=== PATIENT | female | born 1970 | race Caucasian/White ===

== ENCOUNTER 2019-05-20 13:48 | Inpatient (IN) | payer MEDICAID ==
[~2019-05-20] VITALS: Ht 167.6 cm; Wt 113.6 kg
[2019-05-20] VITALS (9 sets, daily range): BP systolic 68–122; BP diastolic 35–80
[2019-05-20] MEDS ORDERED: normal saline 1000ML IV soln IVB ONE ×2 (14:00)
[2019-05-20] MEDS ORDERED: etomidate 2mg/ml inj. ONE (14:00)
[2019-05-20] MEDS ORDERED: calcium chloride 100 MG/1 ML inj IV ONE ×2 (14:00→15:25)
[2019-05-20] MEDS ORDERED: epiNEPHrine 0.1mg/ml 10ml syringe ONE (14:00)
[2019-05-20] MEDS ORDERED: dextrose 50%-water 50ml dispensing syringe IV ONE ×3 (14:00→15:50)
[2019-05-20] MEDS ORDERED: sodium bicarbonate (8.4%) 1 mEq/ml syringe ONE (14:00)
[2019-05-20] MEDS ORDERED: sod chloride 0.9% 10ml flush syringe IV ONE (14:00)
[2019-05-20 14:15] LABS: BASOPHILS % (AUTO) 0.2 % (0-1); EOSINOPHILS % (AUTO) 0.1 % (0-6); HEMATOCRIT 24.5 % (35.0-45.0); HEMOGLOBIN 7.5 g/dl (12.0-16.0); LYMPHOCYTES # (AUTO) 0.5 X10'3 (1.1-4.8); LYMPHOCYTES % (AUTO) 4.6 % (21-51); MEAN CORPUSCULAR HGB CONC 30.6 g/dL (33.0-36.5); MEAN CORPUSCULAR VOLUME 85.1 FL (78-98); MEAN PLATELET VOLUME 9.2 FL (7.4-10.4); MONOCYTES # (AUTO) 0.6 X10'3 (0-0.9); NEUTROPHILS # (AUTO) 10.6 X10'3 (1.8-7.7); NEUTROPHILS % (AUTO) 90.1 % (42-75); PLATELET COUNT 233 X10'3 (140-440); RED BLOOD COUNT 2.88 X10'6 (4.20-5.60); RED CELL DISTRIBUTION WIDTH 17.1 % (11.5-14.5); WHITE BLOOD COUNT 11.7 X10'3 (4.5-11.0)
[2019-05-20 14:32] LABS: ALANINE AMINOTRANSFERASE 30 U/L (12-78); ALBUMIN 2.3 G/DL (3.4-5.0); ALBUMIN/GLOBULIN RATIO 0.5 (1.1-1.5); ALKALINE PHOSPHATASE 217 IU/L (46-116); ANION GAP 22 (8-16); ASPARTATE AMINO TRANSFERASE 28 U/L (10-37); BILIRUBIN,TOTAL 0.2 MG/DL (0.1-1.0); BLOOD UREA NITROGEN 138 MG/DL (7-18); BUN/CREATININE RATIO 15.6 (6.6-38.0); CHLORIDE 107 MMOL/L (99-107); CREATININE 8.85 MG/DL (0.40-0.90); GLUCOSE 280 MG/DL (70-104); SODIUM 136 MMOL/L (135-145); eGFR 5 ML/MIN
[2019-05-20 14:34] LABS: POTASSIUM 8.3 MMOL/L (3.5-5.1); TOTAL CARBON DIOXIDE 7.1 MMOL/L (24-32)
[2019-05-20] MEDS ORDERED: albuterol 2.5 MG/3 ML nebule CONTNEB PRN (14:45)
[2019-05-20] MEDS ORDERED: insulin regular, human 10 units/0.1 ml syringe IV ONE (14:45)
[2019-05-20] MEDS ORDERED: calcium gluconate inj. 1 GM in normal saline 100ml IV soln 90 ML IV ONE (14:45)
[2019-05-20] MEDS ORDERED: sodium bicarbonate (0.9mEq/ml) 44.6 mEq/50ml syringe IV ONE (14:45)
[2019-05-20] MEDS ORDERED: sodium bicarbonate (8.4%) inj. 1 MEQ/ML ML IV ONE (14:55)
[2019-05-20] MEDS ORDERED: acetaminophen 325mg tablet PO PRN ×2 (15:00)
[2019-05-20] MEDS ORDERED: morphine 4 MG/ML inj SYRINge IV PRN (15:00)
--- NOTE | 2019-05-20 15:05 | NUR ---
MD Garcia gave pt 0.1mg Epi IV x2 about 2 min apart because the pt's HR was dropping to the 40's and BP was low. the Calcium gluconate is still being waited on from the pharmacy so the MD Garcia verbally ordered calcium chloride 1 gram and it was given along with 1 amp of D50. 2 amps total of sodium bicarb has been given per MD request.
[2019-05-20] MEDS ORDERED: LIDOcaine 1%/PF 5ML 10 MG/ML VIAL SQ ONE (15:10)
[2019-05-20] MEDS ORDERED: midazolam 2 mg/2 ml injection IV PRN (15:10)
[2019-05-20] MEDS ORDERED: fentaNYL/PF 50MCG/1 ML 2ML syringe IV PRN (15:10)
[2019-05-20] MEDS ORDERED: heparin 1,000 units/ml 10ml inj ICATH ONE (15:10)
--- NOTE | 2019-05-20 15:10 | NUR ---
Ohlfs at bedside because the pt's BP dropped. pt's been given all the meds ordered. see eMar. pt on Non-rebreather.
[2019-05-20] MEDS ORDERED: LIDOcaine 1% w/epiNEPHrine 1:200,000 30ml vial ONE (15:15)
[2019-05-20] MEDS ORDERED: LIDOcaine 1%/PF 5ML 10 MG/ML VIAL ONE (15:15)
[2019-05-20] MEDS ORDERED: midazolam 2 mg/2 ml injection ONE (15:15)
[2019-05-20] MEDS ORDERED: heparin 1,000unit/ml 10ml vial 10 ML ONE ×2 (15:15→16:25)
[2019-05-20] MEDS ORDERED: fentaNYL/PF 50MCG/1 ML 2ML syringe ONE (15:15)
[2019-05-20] MEDS ORDERED: normal saline 1000ml 250 ML IV PRN (15:18)
[2019-05-20] MEDS ORDERED: heparin 1,000unit/ml 10ml vial 10 ML IV ONE (15:18)
--- NOTE | 2019-05-20 15:19 | NUR ---
pt is talking more and more interactive. MD Burns came and talked with pt and her mother. he states that the pt needs dialysis stat. talking with charge nurse Quita to figure out how to get this done.
[2019-05-20] MEDS ORDERED: epoetin 20,000 units/ml inj IV ONE (15:20)
[2019-05-20] MEDS ORDERED: heparin 1,000 units/ml 10ml inj HE ONE ×2 (15:25)
--- NOTE | 2019-05-20 15:29 | NUR ---
called ICU and they will take bedside report but then MD Burns needs the pt in IR instead for putting a dialysis port in. calling report to IR and will take pt up shortly.
[2019-05-20 15:30] LABS: ABG BASE EXCESS -22.9 mmol/L (-2.0-3.0); ABG HCO3 7.4 mmol/L (22.0-26.0); ABG OXYGEN SATURATION 98.9 % (95-98); ABG PCO2 (T) 34.3 mmHg (35.0-45.0); ABG PH (T) 6.954 (7.350-7.450); ABG PO2 (T) 265.3 mmHg (83-108); ALLEN'S TEST Positive; FCOHb 0.3 % (0.5-1.5); FLOW 8 L/min; FMetHb 0.1 % (0.3-1.12); FO2Hb 98.5 % (94-100); TOTAL HEMOGLOBIN 7.5 G/dl (12.0-16.0)
--- NOTE | 2019-05-20 15:42 | NUR ---
ohlfs at bedside and sees pt's BP and gave another dose of 0.1mg of epi. IR nurses are down in ER to place temporary fistula for dialysis.
--- NOTE | 2019-05-20 15:51 | NUR ---
sterile procedure underway for catheter placement with IR nurses and MD Ignacio vaughn. pt doing well. pt's mother at bedside.
[2019-05-20] MEDS ORDERED: SERT50TA10 PO (15:55)
[2019-05-20] MEDS ORDERED: FERR-106 PO (15:55)
[2019-05-20] MEDS ORDERED: INSU100I45 SQ (15:55)
[2019-05-20] MEDS ORDERED: INSU100I31 SQ (15:55)
[2019-05-20] MEDS ORDERED: PREG50CA64 PO (15:55)
[2019-05-20] MEDS ORDERED: FURO40TA4 PO (15:55)
--- NOTE | 2019-05-20 16:00 | NUR ---
done with procedure and having XR done for placement then will go up to ICU with pt.
--- NOTE | 2019-05-20 16:00 | NUR ---
report called to ICU
[2019-05-20 16:02] LABS: CLARITY,URINE CLOUDY (Clear); COLOR,URINE YELLOW (Yellow); GLUCOSE, URINE NEGATIVE (Neg); KETONES,URINE NEGATIVE (Neg); LEUKOCYTE ESTERASE ,URINE LARGE (Neg); NITRITES, URINE NEGATIVE (Neg); OCCULT BLOOD,URINE LARGE (Neg); PROTEIN,URINE >=300 mg/dl (Neg); UROBILINOGEN,URINE 0.2 E.U/dL (0.2-1.0)
[2019-05-20 16:04] LABS: UA COLLECTION TYPE FOLEY CATH
[2019-05-20 16:09] LABS: BACTERIA,URINE 2+ /HPF (Neg); RBC,URINE TNTC /HPF (0-2); SQUAMOUS EPITHELIAL CELL,UR FEW /LPF (FEW); WBC,URINE TNTC /HPF (0-4)
[2019-05-20 16:10] LABS: WBC CLUMPS,URINE MODERATE /HPF (NEGATIVE)
[2019-05-20] MEDS: sodium bicarbonate (8.4%) inj. 75 MEQ in dextrose 5% water 500ml 500 ML IV SCH ×2 (17:07→20:41)
[2019-05-20] MEDS ORDERED: normal saline 1000ml 1,000 ML IV ONE (17:30)
--- NOTE | 2019-05-20 17:30 | NUR ---
Patient was received from the ED, post TDC insertion by IR at bedside. Patient is responding to direction, but is very confused and is humming and moaning, with an occasional coherent word. Patient's vitals upon receipt from ED showed HR 103, BP 93/44, O2 sat of 100% on non-rebreather, RR 12. However, the Patient's BP dropped to 60/30 within 30 minutes of being in ICU. Per Dr. Coleman, a Liter bag of NS was given as a bolus, and the Bicarb drip was started as ordered. Dialysis is at bedside and is setting up the equipment to begin. Patient's mother is in the room sitting quietly, watching the staff work.
--- NOTE | 2019-05-20 19:01 | NUR ---
Problems reprioritized. Patient report given, questions answered & plan of care reviewed with Latoya MAURO.
[2019-05-20 19:43] LABS: % IRON SATURATION 9 % (11-46); IRON 18 UG/DL (49-151); TOTAL IRON BINDING CAPACITY 203 UG/DL (259-388)
[2019-05-20] MEDS: docusate sod 100mg capsule PO SCH (20:00)
[2019-05-20] MEDS: sennosides/docusate sodium tablet PO SCH (20:05)
[2019-05-20 20:51] LABS: ALBUMIN 2.3 G/DL (3.4-5.0); ANION GAP 7 (8-16); BLOOD UREA NITROGEN 49 MG/DL (7-18); BUN/CREATININE RATIO 14.5 (6.6-38.0); CALCIUM 7.4 MG/DL (8.5-10.1); CHLORIDE 106 MMOL/L (99-107); CREATININE 3.39 MG/DL (0.40-0.90); GLUCOSE 171 MG/DL (70-104); MAGNESIUM 1.5 MG/DL (1.5-2.4); PHOSPHORUS 4.3 MG/DL (2.3-4.5); POTASSIUM 3.7 MMOL/L (3.5-5.1); SODIUM 139 MMOL/L (135-145); TOTAL CARBON DIOXIDE 25.7 MMOL/L (24-32); eGFR 14 ML/MIN
[2019-05-20] MEDS ORDERED: amiodarone 150mg/dext, iso-os 100 ML IV ONE (21:25)
--- NOTE | 2019-05-20 21:30 | NUR ---
HEART RATE WENT UP TO 150 AND HAD RUNS OF VT X2 , PA CALLED AND ORDERS AMIODARONE PER PROTOCOL
[2019-05-20] MEDS: amiodarone/D5 360MG/200ML BAG 200 ML IV SCH (21:53)
--- NOTE | 2019-05-20 23:00 | NUR ---
CONVERTED TO SINUS RHYTHM , BP AT 80s WITH MEAN ABOVE 60S , PA MADE AWARE .STILL CONFUSED AND STILL TRYING TO REACH / PULL HER TDC , RESTRAINT IN PLACE
[2019-05-21] VITALS (24 sets, daily range): BP systolic 94–136; BP diastolic 38–79
[2019-05-21] MEDS: sodium bicarbonate (8.4%) inj. 75 MEQ in dextrose 5% water 500ml 500 ML IV SCH ×2 (02:46→10:02)
[2019-05-21] MEDS: morphine 2 MG/ML inj. syringe IV PRN (02:47)
[2019-05-21] MEDS: amiodarone/D5 360MG/200ML BAG 200 ML IV SCH (02:53)
[2019-05-21 05:56] LABS: BASOPHILS % (AUTO) 0.1 % (0-1); EOSINOPHILS % (AUTO) 0 % (0-6); HEMATOCRIT 22.9 % (35.0-45.0); HEMOGLOBIN 7.5 g/dl (12.0-16.0); LYMPHOCYTES # (AUTO) 0.6 X10'3 (1.1-4.8); LYMPHOCYTES % (AUTO) 9.1 % (21-51); MEAN CORPUSCULAR HEMOGLOBIN 25.7 PG (27.0-31.0); MEAN CORPUSCULAR HGB CONC 32.8 g/dL (33.0-36.5); MEAN CORPUSCULAR VOLUME 78.5 FL (78-98); MEAN PLATELET VOLUME 9.4 FL (7.4-10.4); MONOCYTES # (AUTO) 0.4 X10'3 (0-0.9); MONOCYTES % (AUTO) 6.3 % (2-12); NEUTROPHILS # (AUTO) 5.8 X10'3 (1.8-7.7); NEUTROPHILS % (AUTO) 84.5 % (42-75); PLATELET COUNT 232 X10'3 (140-440); RED BLOOD COUNT 2.91 X10'6 (4.20-5.60); RED CELL DISTRIBUTION WIDTH 15.9 % (11.5-14.5); WHITE BLOOD COUNT 6.8 X10'3 (4.5-11.0)
[2019-05-21 06:22] LABS: ALANINE AMINOTRANSFERASE 64 U/L (12-78); ALBUMIN 2.2 G/DL (3.4-5.0); ALBUMIN/GLOBULIN RATIO 0.5 (1.1-1.5); ALKALINE PHOSPHATASE 273 IU/L (46-116); ANION GAP 13 (8-16); ASPARTATE AMINO TRANSFERASE 55 U/L (10-37); BILIRUBIN,TOTAL 0.1 MG/DL (0.1-1.0); BLOOD UREA NITROGEN 58 MG/DL (7-18); BUN/CREATININE RATIO 13.4 (6.6-38.0); CALCIUM 6.7 MG/DL (8.5-10.1); CHLORIDE 103 MMOL/L (99-107); CREATININE 4.32 MG/DL (0.40-0.90); GLUCOSE 218 MG/DL (70-104); MAGNESIUM 1.5 MG/DL (1.5-2.4); PHOSPHORUS 6.7 MG/DL (2.3-4.5); POTASSIUM 4.9 MMOL/L (3.5-5.1); SODIUM 140 MMOL/L (135-145); TOTAL CARBON DIOXIDE 24.3 MMOL/L (24-32); TOTAL PROTEIN 6.6 G/DL (6.4-8.2); eGFR 11 ML/MIN
--- NOTE | 2019-05-21 06:27 | NUR ---
Problems reprioritized. Patient report given, questions answered & plan of care reviewed with Trevon.
--- NOTE | 2019-05-21 06:30 | NUR ---
Patient in room CICU 2006. I have received report from Latoya MAURO and had the opportunity to ask questions and assume patient care.
[2019-05-21] MEDS: docusate sod 100mg capsule PO SCH ×2 (08:00→19:37)
[2019-05-21] MEDS: ondansetron/PF 4mg/2ml inj IV PRN ×2 (08:08→14:11)
[2019-05-21] MEDS ORDERED: amiodarone/D5 360MG/200ML BAG 200 ML IV SCH (08:47)
[2019-05-21] MEDS ORDERED: glucagon, human recombinant 1mg kit SUBCUT PRN (09:30)
[2019-05-21] MEDS ORDERED: MESSAGE TO PHARMACY PO ONE (09:30)
[2019-05-21] MEDS ORDERED: dextrose ORAL solution 15 GM/59 ML bottle PO PRN ×2 (09:30)
[2019-05-21] MEDS ORDERED: dextrose 50%-water 50ml dispensing syringe IV PRN ×2 (09:30)
[2019-05-21] MEDS ORDERED: normal saline 1000ml 250 ML IV PRN (09:47)
[2019-05-21] MEDS ORDERED: heparin 1,000unit/ml 10ml vial 10 ML IV ONE (09:47)
[2019-05-21] MEDS ORDERED: epoetin 20,000 units/ml inj IV ONE (09:50)
[2019-05-21] MEDS ORDERED: heparin 1,000 units/ml 10ml inj HE ONE ×2 (09:55)
[2019-05-21] MEDS ORDERED: pneumococcal 23-VAL P-sac vacc 25 mcg/0.5ml vial IMVAC ONE (10:00)
[2019-05-21] MEDS ORDERED: FLU VACC QS2019-20 36MOS UP/PF 60 MCG/0.5 ML SYRINGE IMVAC ONE (10:00)
--- NOTE | 2019-05-21 10:00 | NUR ---
patient states that she has received the flu vaccine this season in late January. Patient is unsure whether she wants to have the pneumococcal vaccination. Educated the patient on benefits of receiving vaccination. Patient would like to wait.
[2019-05-21] MEDS ORDERED: insulin Lispro (HumaLOG) vial - multi-dose SQ SCH (12:00)
[2019-05-21] MEDS: sodium ferric gluc complex inj 125 MG in normal saline 100ml IV soln 100 ML IV SCH (12:42)
[2019-05-21] MEDS: pregabalin 25mg capsule PO SCH ×2 (13:00→13:32)
--- NOTE | 2019-05-21 16:09 | NUR ---
pt to IR for TDC placement.
[2019-05-21] MEDS ORDERED: fentaNYL/PF 50MCG/1 ML 2ML syringe ONE (16:13)
[2019-05-21] MEDS ORDERED: LIDOcaine 1%/PF 5ML 10 MG/ML VIAL ONE (16:13)
[2019-05-21] MEDS ORDERED: heparin 1,000unit/ml 10ml vial 10 ML ONE (16:13)
[2019-05-21] MEDS ORDERED: ondansetron/PF 4mg/2ml inj ONE (16:45)
--- NOTE | 2019-05-21 17:15 | NUR ---
pt back from IR; VSS
--- NOTE | 2019-05-21 17:28 | NUR ---
DM consult, Hgb A1c is 7.3; given written DM education handout with verbal review and referral to outpatient DM education class on Friday Addendum: 05/21/19 at [address] Amended: Links added.
--- NOTE | 2019-05-21 18:44 | NUR ---
Problems reprioritized. Patient report given, questions answered & plan of care reviewed with Mac RN.
[2019-05-21] MEDS ORDERED: proCHLORperazine 10 MG/2 ml inj IV ONE (19:05)
[2019-05-21] MEDS: sennosides/docusate sodium tablet PO SCH (19:37)
[2019-05-21] MEDS ORDERED: insulin glargine (Lantus) pen - multi-dose SQ SCH (21:00)
[2019-05-21] MEDS: insulin glargine (Lantus) pen - multi-dose SQ SCH (21:00)
[2019-05-22] VITALS (20 sets, daily range): BP systolic 119–164; BP diastolic 51–82
[2019-05-22 05:03] LABS: BASOPHILS % (AUTO) 0.4 % (0-1); EOSINOPHILS # (AUTO) 0.1 X10'3 (0-0.9); EOSINOPHILS % (AUTO) 0.7 % (0-6); HEMATOCRIT 24.4 % (35.0-45.0); LYMPHOCYTES # (AUTO) 1.1 X10'3 (1.1-4.8); LYMPHOCYTES % (AUTO) 11.7 % (21-51); MEAN CORPUSCULAR HEMOGLOBIN 25.9 PG (27.0-31.0); MEAN CORPUSCULAR VOLUME 78.3 FL (78-98); MEAN PLATELET VOLUME 9.1 FL (7.4-10.4); MONOCYTES % (AUTO) 10.4 % (2-12); NEUTROPHILS # (AUTO) 7.3 X10'3 (1.8-7.7); NEUTROPHILS % (AUTO) 76.8 % (42-75); PLATELET COUNT 268 X10'3 (140-440); RED BLOOD COUNT 3.11 X10'6 (4.20-5.60); RED CELL DISTRIBUTION WIDTH 16.2 % (11.5-14.5); WHITE BLOOD COUNT 9.4 X10'3 (4.5-11.0)
[2019-05-22 05:21] LABS: ALANINE AMINOTRANSFERASE 113 U/L (12-78); ALBUMIN 2.1 G/DL (3.4-5.0); ALBUMIN/GLOBULIN RATIO 0.5 (1.1-1.5); ALKALINE PHOSPHATASE 236 IU/L (46-116); ANION GAP 7 (8-16); ASPARTATE AMINO TRANSFERASE 98 U/L (10-37); BILIRUBIN,TOTAL 0.2 MG/DL (0.1-1.0); BLOOD UREA NITROGEN 29 MG/DL (7-18); BUN/CREATININE RATIO 9.8 (6.6-38.0); CALCIUM 6.7 MG/DL (8.5-10.1); CHLORIDE 108 MMOL/L (99-107); CREATININE 2.96 MG/DL (0.40-0.90); GLUCOSE 68 MG/DL (70-104); MAGNESIUM 1.5 MG/DL (1.5-2.4); PHOSPHORUS 4.5 MG/DL (2.3-4.5); POTASSIUM 3.8 MMOL/L (3.5-5.1); SODIUM 145 MMOL/L (135-145); TOTAL CARBON DIOXIDE 29.6 MMOL/L (24-32); TOTAL PROTEIN 6.4 G/DL (6.4-8.2); eGFR 17 ML/MIN
--- NOTE | 2019-05-22 06:30 | NUR ---
Patient in room CICU 2006. I have received report from Mac RN and had the opportunity to ask questions and assume patient care.
[2019-05-22] MEDS: sertraline 50mg tablet PO SCH (07:56)
[2019-05-22] MEDS: pregabalin 25mg capsule PO SCH (07:56)
[2019-05-22] MEDS: ferrous sulfate 325mg tablet PO SCH (07:56)
[2019-05-22] MEDS: sodium ferric gluc complex inj 125 MG in normal saline 100ml IV soln 100 ML IV SCH (07:56)
[2019-05-22] MEDS ORDERED: furosemide 40mg tablet PO SCH (08:00)
[2019-05-22] MEDS: docusate sod 100mg capsule PO SCH ×2 (08:00→20:00)
[2019-05-22 08:09] LABS: HBSAG SCREEN Negative (Negative)
[2019-05-22] MEDS: furosemide 40mg tablet PO SCH (08:13)
[2019-05-22] MEDS: HYDROcodone/acetaminophen 10/325mg tab PO PRN ×2 (10:37→23:09)
--- NOTE | 2019-05-22 16:10 | NUR ---
recieved report from NJ Alvarez [facility]
--- NOTE | 2019-05-22 16:10 | NUR ---
pt report called to Susanna MAURO; all questions answered.
--- NOTE | 2019-05-22 16:25 | NUR ---
pt wheeled to Room 3022X with all belongings.
--- NOTE | 2019-05-22 16:47 | NUR ---
Arrived to U via a&ox4.
--- NOTE | 2019-05-22 18:29 | NUR ---
Problems reprioritized. Patient report given, questions answered & plan of care reviewed with NJ Matson.
--- NOTE | 2019-05-22 18:40 | NUR ---
Patient in room PCU 3025. I have received report from Susanna MAURO and had the opportunity to ask questions and assume patient care.
[2019-05-22] MEDS: sennosides/docusate sodium tablet PO SCH (20:48)
[2019-05-22] MEDS: insulin glargine (Lantus) pen - multi-dose SQ SCH (21:00)
[2019-05-23 02:00] VITALS: BP 135/59
[2019-05-23 06:20] LABS: BASOPHILS % (AUTO) 0.5 % (0-1); EOSINOPHILS # (AUTO) 0.2 X10'3 (0-0.9); EOSINOPHILS % (AUTO) 2.7 % (0-6); HEMOGLOBIN 10.5 g/dl (12.0-16.0); LYMPHOCYTES # (AUTO) 1.5 X10'3 (1.1-4.8); LYMPHOCYTES % (AUTO) 19.3 % (21-51); MEAN CORPUSCULAR HGB CONC 32.8 g/dL (33.0-36.5); MEAN CORPUSCULAR VOLUME 79.3 FL (78-98); MEAN PLATELET VOLUME 9.1 FL (7.4-10.4); MONOCYTES # (AUTO) 0.9 X10'3 (0-0.9); MONOCYTES % (AUTO) 11.5 % (2-12); NEUTROPHILS # (AUTO) 5.1 X10'3 (1.8-7.7); PLATELET COUNT 238 X10'3 (140-440); RED BLOOD COUNT 4.04 X10'6 (4.20-5.60); WHITE BLOOD COUNT 7.7 X10'3 (4.5-11.0)
--- NOTE | 2019-05-23 06:27 | NUR ---
Problems reprioritized. Patient report given, questions answered & plan of care reviewed with Johanne MAURO.
[2019-05-23 06:34] LABS: ALANINE AMINOTRANSFERASE 100 U/L (12-78); ALBUMIN 2.4 G/DL (3.4-5.0); ALBUMIN/GLOBULIN RATIO 0.6 (1.1-1.5); ALKALINE PHOSPHATASE 211 IU/L (46-116); ANION GAP 9 (8-16); ASPARTATE AMINO TRANSFERASE 54 U/L (10-37); BILIRUBIN,TOTAL 0.2 MG/DL (0.1-1.0); BLOOD UREA NITROGEN 41 MG/DL (7-18); BUN/CREATININE RATIO 11.7 (6.6-38.0); CHLORIDE 106 MMOL/L (99-107); GLUCOSE 155 MG/DL (70-104); MAGNESIUM 1.6 MG/DL (1.5-2.4); PHOSPHORUS 3.9 MG/DL (2.3-4.5); POTASSIUM 3.7 MMOL/L (3.5-5.1); SODIUM 143 MMOL/L (135-145); TOTAL CARBON DIOXIDE 27.9 MMOL/L (24-32); TOTAL PROTEIN 6.7 G/DL (6.4-8.2); eGFR 14 ML/MIN
[2019-05-23 07:00] VITALS: BP 139/70
--- NOTE | 2019-05-23 07:40 | NUR ---
Patient in room PCU 3025. I have received report from Dano and had the opportunity to ask questions and assume patient care.
[2019-05-23 08:08] LABS: HBSAG SCREEN Negative (Negative); HEPATITIS C ANTIBODY 0.3 s/co ratio (0.0-0.9)
[2019-05-23] MEDS: docusate sod 100mg capsule PO SCH ×2 (08:35→20:00)
[2019-05-23] MEDS: sertraline 50mg tablet PO SCH (08:35)
[2019-05-23] MEDS: pregabalin 25mg capsule PO SCH (08:35)
[2019-05-23] MEDS: ferrous sulfate 325mg tablet PO SCH (08:36)
[2019-05-23] MEDS: folic acid/vitamin B complex w/vitamin C 0.8mg tablet PO SCH (08:36)
[2019-05-23] MEDS: folic acid 1mg tablet PO SCH (08:36)
[2019-05-23] MEDS: furosemide 40mg tablet PO SCH (08:36)
[2019-05-23] MEDS: sodium ferric gluc complex inj 125 MG in normal saline 100ml IV soln 100 ML IV SCH (08:37)
[2019-05-23 11:00] VITALS: BP 152/54
[2019-05-23] MEDS: insulin Lispro (HumaLOG) vial - multi-dose SQ SCH (14:42)
[2019-05-23 15:00] VITALS: BP 151/71
--- NOTE | 2019-05-23 17:00 | NUR ---
Patients blood sugar was 54, patient reports feeling tired. Pt. stated she usually handles insulin pretty well at home. Patient refused dextrose but agreeable to juice. Rechecked blood sugar and it was 73, patient currently eating. Pt. offers no other complaints. Will report to NOC shift.
[2019-05-23 18:00] VITALS: BP 174/66
--- NOTE | 2019-05-23 18:15 | NUR ---
Patient in room PCU 3025. I have received report from Johanne MAURO and had the opportunity to ask questions and assume patient care.
--- NOTE | 2019-05-23 18:43 | NUR ---
Problems reprioritized. Patient report given, questions answered & plan of care reviewed with
[2019-05-23] MEDS: sennosides/docusate sodium tablet PO SCH (20:04)
[2019-05-23] MEDS: insulin glargine (Lantus) pen - multi-dose SQ SCH (21:27)
[2019-05-23 22:00] VITALS: BP 146/63
[2019-05-24] VITALS (7 sets, daily range): BP systolic 125–167; BP diastolic 51–73
[2019-05-24 05:44] LABS: ALANINE AMINOTRANSFERASE 73 U/L (12-78); ALBUMIN 2.2 G/DL (3.4-5.0); ALBUMIN/GLOBULIN RATIO 0.5 (1.1-1.5); ALKALINE PHOSPHATASE 175 IU/L (46-116); ANION GAP 9 (8-16); ASPARTATE AMINO TRANSFERASE 35 U/L (10-37); BILIRUBIN,TOTAL 0.2 MG/DL (0.1-1.0); BLOOD UREA NITROGEN 35 MG/DL (7-18); BUN/CREATININE RATIO 10.8 (6.6-38.0); CALCIUM 7.3 MG/DL (8.5-10.1); CHLORIDE 105 MMOL/L (99-107); CREATININE 3.23 MG/DL (0.40-0.90); GLUCOSE 119 MG/DL (70-104); MAGNESIUM 1.4 MG/DL (1.5-2.4); PHOSPHORUS 3.9 MG/DL (2.3-4.5); POTASSIUM 3.4 MMOL/L (3.5-5.1); SODIUM 141 MMOL/L (135-145); TOTAL CARBON DIOXIDE 26.7 MMOL/L (24-32); TOTAL PROTEIN 6.3 G/DL (6.4-8.2); eGFR 15 ML/MIN
[2019-05-24 06:00] LABS: BASOPHILS % (AUTO) 0.4 % (0-1); EOSINOPHILS # (AUTO) 0.3 X10'3 (0-0.9); EOSINOPHILS % (AUTO) 3.6 % (0-6); HEMOGLOBIN 7.9 g/dl (12.0-16.0); LYMPHOCYTES # (AUTO) 1.6 X10'3 (1.1-4.8); LYMPHOCYTES % (AUTO) 19.1 % (21-51); MEAN CORPUSCULAR HEMOGLOBIN 26.6 PG (27.0-31.0); MEAN CORPUSCULAR VOLUME 80.4 FL (78-98); MEAN PLATELET VOLUME 8.9 FL (7.4-10.4); MONOCYTES # (AUTO) 0.9 X10'3 (0-0.9); NEUTROPHILS # (AUTO) 5.6 X10'3 (1.8-7.7); NEUTROPHILS % (AUTO) 65.9 % (42-75); PLATELET COUNT 241 X10'3 (140-440); RED BLOOD COUNT 2.98 X10'6 (4.20-5.60); RED CELL DISTRIBUTION WIDTH 15.7 % (11.5-14.5); WHITE BLOOD COUNT 8.4 X10'3 (4.5-11.0)
--- NOTE | 2019-05-24 06:25 | NUR ---
Problems reprioritized. Patient report given, questions answered & plan of care reviewed with Kelly MAURO.
--- NOTE | 2019-05-24 06:42 | NUR ---
Patient in room PCU 3025B. I have received report from Dano MAURO and had the opportunity to ask questions and assume patient care.
[2019-05-24] MEDS: pregabalin 25mg capsule PO SCH (07:49)
[2019-05-24] MEDS: sertraline 50mg tablet PO SCH (07:49)
[2019-05-24] MEDS: folic acid/vitamin B complex w/vitamin C 0.8mg tablet PO SCH (07:49)
[2019-05-24] MEDS: furosemide 40mg tablet PO SCH (07:49)
[2019-05-24] MEDS: ferrous sulfate 325mg tablet PO SCH (07:49)
[2019-05-24] MEDS: folic acid 1mg tablet PO SCH (07:49)
[2019-05-24] MEDS: sodium ferric gluc complex inj 125 MG in normal saline 100ml IV soln 100 ML IV SCH (07:49)
[2019-05-24] MEDS: docusate sod 100mg capsule PO SCH ×2 (07:59→20:00)
[2019-05-24] MEDS ORDERED: heparin 1,000unit/ml 10ml vial 10 ML IV ONE (08:37)
[2019-05-24] MEDS ORDERED: normal saline 1000ml 250 ML IV PRN (08:37)
[2019-05-24] MEDS ORDERED: epoetin 20,000 units/ml inj IV ONE (08:40)
[2019-05-24] MEDS ORDERED: heparin 1,000 units/ml 10ml inj HE ONE ×2 (08:45)
[2019-05-24] MEDS ORDERED: tPA-cathflo 2 MG/2 ml IV flush IVF ONE ×2 (11:40)
[2019-05-24] MEDS: insulin Lispro (HumaLOG) vial - multi-dose SQ SCH ×2 (13:42→19:03)
--- NOTE | 2019-05-24 18:26 | NUR ---
Problems reprioritized. Patient report given, questions answered & plan of care reviewed with Woodrow MAURO.
[2019-05-24] MEDS: sennosides/docusate sodium tablet PO SCH (20:22)
[2019-05-24] MEDS: insulin glargine (Lantus) pen - multi-dose SQ SCH (21:28)
[2019-05-25 02:00] VITALS: BP 154/73
--- NOTE | 2019-05-25 06:28 | NUR ---
Patient in room PCU 3025B. I have received report from Woodrow MAURO and had the opportunity to ask questions and assume patient care.
[2019-05-25 06:30] VITALS: BP 162/79
--- NOTE | 2019-05-25 06:31 | NUR ---
Problems reprioritized. Patient report given, questions answered & plan of care reviewed. Addendum: 05/25/19 at 0631 by Nigel Muro RN Amended: Links added.
[2019-05-25] MEDS: docusate sod 100mg capsule PO SCH ×3 (07:48→19:34)
[2019-05-25] MEDS: folic acid/vitamin B complex w/vitamin C 0.8mg tablet PO SCH (07:48)
[2019-05-25] MEDS: folic acid 1mg tablet PO SCH (07:48)
[2019-05-25] MEDS: sodium ferric gluc complex inj 125 MG in normal saline 100ml IV soln 100 ML IV SCH (07:48)
[2019-05-25] MEDS: ferrous sulfate 325mg tablet PO SCH (07:49)
[2019-05-25] MEDS: sertraline 50mg tablet PO SCH (07:49)
[2019-05-25] MEDS: furosemide 40mg tablet PO SCH (07:52)
[2019-05-25] MEDS: pregabalin 25mg capsule PO SCH (07:52)
--- NOTE | 2019-05-25 08:00 | NUR ---
Did not cover patients AM blood sugar of 126, pt did not want insulin because of "my body's sensitive bottoming out from it." Education provided, and will reevaluate with 1200 blood sugar.
[2019-05-25 08:04] LABS: BASOPHILS % (AUTO) 0.6 % (0-1); EOSINOPHILS # (AUTO) 0.2 X10'3 (0-0.9); HEMATOCRIT 25.5 % (35.0-45.0); HEMOGLOBIN 8.2 g/dl (12.0-16.0); LYMPHOCYTES # (AUTO) 1.2 X10'3 (1.1-4.8); LYMPHOCYTES % (AUTO) 16.4 % (21-51); MEAN CORPUSCULAR VOLUME 81.2 FL (78-98); MEAN PLATELET VOLUME 8.6 FL (7.4-10.4); MONOCYTES # (AUTO) 1.1 X10'3 (0-0.9); MONOCYTES % (AUTO) 14.9 % (2-12); NEUTROPHILS # (AUTO) 4.7 X10'3 (1.8-7.7); NEUTROPHILS % (AUTO) 65.1 % (42-75); PLATELET COUNT 219 X10'3 (140-440); RED BLOOD COUNT 3.14 X10'6 (4.20-5.60); WHITE BLOOD COUNT 7.2 X10'3 (4.5-11.0)
--- NOTE | 2019-05-25 08:06 | NUR ---
non-admin'd 05/21/2019 Pneumonia vaccine because it is a duplicate. pt did not refuse, but there was no option for duplicate order and pharmacy did not clear it from [facility]
[2019-05-25 08:15] LABS: ALBUMIN 2.3 G/DL (3.4-5.0); ANION GAP 6 (8-16); BLOOD UREA NITROGEN 16 MG/DL (7-18); BUN/CREATININE RATIO 7.2 (6.6-38.0); CALCIUM 7.9 MG/DL (8.5-10.1); CHLORIDE 108 MMOL/L (99-107); CREATININE 2.21 MG/DL (0.40-0.90); GLUCOSE 116 MG/DL (70-104); POTASSIUM 3.7 MMOL/L (3.5-5.1); SODIUM 143 MMOL/L (135-145); TOTAL CARBON DIOXIDE 28.8 MMOL/L (24-32); eGFR 24 ML/MIN
[2019-05-25] MEDS ORDERED: pneumococcal 23-VAL P-sac vacc 25 mcg/0.5ml vial IMVAC ONE (10:00)
[2019-05-25 11:00] VITALS: BP 168/69
--- NOTE | 2019-05-25 12:18 | NUR ---
Initial: Pt admitted for acute renal failure r/t stage V CKD currently receiving hemodialysis. Pt currently without active diet as patient's renal and carb controlled diet completed, d/w bedside RN. Pt with poor PO intake at admission avg 0-25%, PO intake has improved last two meals avg 75-100%. LBM 05/23/19, pt refusing routine bowel care meds. Will continue to monitor. Recommendation: 1. diet advance renal, carb controlled diet 2. monitor need for ONS 3. routine bowel care 4. weight per rx Addendum: 05/25/19 at 1218 by Wing Roxann DMIAS Amended: Links added. Addendum: 05/25/19 at [address] W[facility] [employer]
[2019-05-25] MEDS: insulin Lispro (HumaLOG) vial - multi-dose SQ SCH (13:58)
[2019-05-25 15:00] VITALS: BP 178/85
--- NOTE | 2019-05-25 15:28 | NUR ---
1500 BP was 178/85 with a recheck of 179/81. Called Dr Coleman for any new orders and he stated he will take care of new orders.
[2019-05-25 18:00] VITALS: BP 171/75
--- NOTE | 2019-05-25 18:30 | NUR ---
Patient in room PCU 3025. I have received report from Kelly MAURO and had the opportunity to ask questions and assume patient care.
--- NOTE | 2019-05-25 18:34 | NUR ---
Problems reprioritized. Patient report given, questions answered & plan of care reviewed with Taylor MAURO.
--- NOTE | 2019-05-25 19:20 | NUR ---
Pt 1700 BG was 118 and pt ate all of their dinner tray, 60 carbs, went in to cover meal carbs, pt refused humalog coverage, will continue to monitor pt diabetes
[2019-05-25] MEDS: sennosides/docusate sodium tablet PO SCH (19:40)
[2019-05-25] MEDS: insulin glargine (Lantus) pen - multi-dose SQ SCH (21:50)
[2019-05-25 22:00] VITALS: BP 165/69
[2019-05-26 02:00] VITALS: BP 185/68
--- NOTE | 2019-05-26 06:37 | NUR ---
Problems reprioritized. Patient report given, questions answered & plan of care reviewed with Lola MAURO.
[2019-05-26 07:00] VITALS: BP 134/53
[2019-05-26] MEDS: sodium ferric gluc complex inj 125 MG in normal saline 100ml IV soln 100 ML IV SCH (07:22)
[2019-05-26] MEDS: furosemide 40mg tablet PO SCH (08:00)
[2019-05-26] MEDS: folic acid 1mg tablet PO SCH (08:00)
[2019-05-26] MEDS: docusate sod 100mg capsule PO SCH ×2 (08:00→20:00)
[2019-05-26] MEDS: pregabalin 25mg capsule PO SCH (08:00)
[2019-05-26] MEDS: ferrous sulfate 325mg tablet PO SCH (08:00)
[2019-05-26] MEDS: folic acid/vitamin B complex w/vitamin C 0.8mg tablet PO SCH (08:00)
[2019-05-26] MEDS: sertraline 50mg tablet PO SCH ×2 (08:00→21:09)
[2019-05-26] MEDS ORDERED: heparin 1,000unit/ml 10ml vial 10 ML IV ONE (08:07)
[2019-05-26] MEDS ORDERED: normal saline 1000ml 250 ML IV PRN (08:07)
[2019-05-26] MEDS ORDERED: epoetin 20,000 units/ml inj IV ONE (08:10)
[2019-05-26] MEDS ORDERED: heparin 1,000 units/ml 10ml inj HE ONE ×2 (08:15)
[2019-05-26 08:47] LABS: BASOPHILS # (AUTO) 0.1 X10'3 (0-0.2); BASOPHILS % (AUTO) 0.7 % (0-1); EOSINOPHILS # (AUTO) 0.2 X10'3 (0-0.9); HEMATOCRIT 28.7 % (35.0-45.0); HEMOGLOBIN 9.1 g/dl (12.0-16.0); LYMPHOCYTES # (AUTO) 1.2 X10'3 (1.1-4.8); LYMPHOCYTES % (AUTO) 14.7 % (21-51); MEAN CORPUSCULAR HEMOGLOBIN 26.2 PG (27.0-31.0); MEAN CORPUSCULAR HGB CONC 31.8 g/dL (33.0-36.5); MEAN CORPUSCULAR VOLUME 82.1 FL (78-98); MEAN PLATELET VOLUME 8.9 FL (7.4-10.4); MONOCYTES # (AUTO) 1.1 X10'3 (0-0.9); NEUTROPHILS # (AUTO) 5.4 X10'3 (1.8-7.7); NEUTROPHILS % (AUTO) 68.6 % (42-75); PLATELET COUNT 206 X10'3 (140-440); RED CELL DISTRIBUTION WIDTH 15.6 % (11.5-14.5)
[2019-05-26] MEDS ORDERED: ringers solution, lacted 1,000 ML IV ONE (08:51)
[2019-05-26] MEDS ORDERED: famotidine 10mg tablet PO PRN (09:00)
[2019-05-26 09:06] LABS: ALANINE AMINOTRANSFERASE 43 U/L (12-78); ALBUMIN 2.5 G/DL (3.4-5.0); ALBUMIN/GLOBULIN RATIO 0.6 (1.1-1.5); ALKALINE PHOSPHATASE 162 IU/L (46-116); ANION GAP 8 (8-16); BILIRUBIN,TOTAL 0.2 MG/DL (0.1-1.0); BLOOD UREA NITROGEN 22 MG/DL (7-18); CALCIUM 7.9 MG/DL (8.5-10.1); CHLORIDE 105 MMOL/L (99-107); CREATININE 2.75 MG/DL (0.40-0.90); GLUCOSE 126 MG/DL (70-104); POTASSIUM 3.9 MMOL/L (3.5-5.1); SODIUM 139 MMOL/L (135-145); TOTAL CARBON DIOXIDE 26.4 MMOL/L (24-32); eGFR 18 ML/MIN
[2019-05-26] MEDS ORDERED: pneumococcal 23-VAL P-sac vacc 25 mcg/0.5ml vial IMVAC ONE (10:00)
[2019-05-26 10:03] LABS: ASPARTATE AMINO TRANSFERASE 25 U/L (10-37)
[2019-05-26 11:00] VITALS: BP 167/88
[2019-05-26 15:00] VITALS: BP 179/82
--- NOTE | 2019-05-26 16:08 | NUR ---
Patient blood sugar 68 at this time. Patient refused glucose treatment and requested juice instead. Will continue to monitor.
[2019-05-26 16:30] VITALS: BP 162/78
--- NOTE | 2019-05-26 18:15 | NUR ---
Problems reprioritized. Patient report given, questions answered & plan of care reviewed with NJ Black.
[2019-05-26] MEDS: sennosides/docusate sodium tablet PO SCH (21:00)
[2019-05-26] MEDS: insulin glargine (Lantus) pen - multi-dose SQ SCH (21:15)
[2019-05-27] VITALS (9 sets, daily range): BP systolic 137–160; BP diastolic 56–74
--- NOTE | 2019-05-27 06:24 | NUR ---
Patient in room PCU 3025. I have received report from NJ Black and had the opportunity to ask questions and assume patient care.
--- NOTE | 2019-05-27 06:36 | NUR ---
Problems reprioritized. Patient report given, questions answered & plan of care reviewed with Lynette MAURO.
[2019-05-27] MEDS: docusate sod 100mg capsule PO SCH ×2 (08:00→20:00)
[2019-05-27] MEDS: sodium ferric gluc complex inj 125 MG in normal saline 100ml IV soln 100 ML IV SCH (09:18)
[2019-05-27] MEDS ORDERED: heparin 10,000 units/1 ML INJ ONE (09:59)
[2019-05-27] MEDS ORDERED: LIDOcaine 1% 30ml preserv. free vial ONE (09:59)
[2019-05-27] MEDS ORDERED: epiNEPHrine 1 mg/ml inj ONE (09:59)
[2019-05-27] MEDS ORDERED: BUPIVAcaine/PF 2.5mg/ml (0.25%) 10ml vial ONE (10:00)
[2019-05-27] MEDS ORDERED: pneumococcal 23-VAL P-sac vacc 25 mcg/0.5ml vial IMVAC ONE (10:00)
--- NOTE | 2019-05-27 11:44 | NUR ---
Verified with RN as well as chart notes and consent that fistula is to be created on left arm. Right sided piv placed in hand by Valerie Malik PICC RN
--- NOTE | 2019-05-27 11:57 | NUR ---
Surgical techs received pt to be transported for fistula placement
[2019-05-27] MEDS ORDERED: sevoflurane 250ml liquid IH ONE (12:16)
[2019-05-27] MEDS ORDERED: fentaNYL/PF 50MCG/1 ML 2ML syringe ONE (12:19)
[2019-05-27] MEDS ORDERED: midazolam 2 mg/2 ml injection ONE (12:19)
[2019-05-27] MEDS ORDERED: propofol inj 20 ML IV ONE (12:21)
[2019-05-27] MEDS ORDERED: ceFAZolin 1000mg inj ONE ×2 (12:27)
[2019-05-27] MEDS ORDERED: ringers solution, lacted 1,000 ML IV SCH (12:49)
[2019-05-27] MEDS ORDERED: ondansetron/PF 4mg/2ml inj IV PRN (12:50)
[2019-05-27] MEDS ORDERED: morphine 4 MG/ML inj SYRINge IV PRN ×2 (12:50)
[2019-05-27] MEDS ORDERED: proCHLORperazine 10 MG/2 ml inj IV PRN (12:50)
[2019-05-27] MEDS ORDERED: meperidine/PF 25mg/ml syringe IV PRN ×3 (12:50)
--- NOTE | 2019-05-27 13:44 | NUR ---
Received from OR via SURGICAL BED , accompanied by Anesthesiologist ALIREZA and report given by Anesthesiolgist. PATIENT WITH 2 DRESSINGS TO RIGHT UE. BOTH CDI. VSS.MEDICATED FOR PAIN UPON ARRIVAL Addendum: 05/27/19 at 1355 by Brian Tellez RN, RN Amended: Links added.
--- NOTE | 2019-05-27 14:01 | NUR ---
Received report from NJ Torres from [facility].
--- NOTE | 2019-05-27 14:04 | NUR ---
ALL CRITERIA FOR TRANSFER TO THE FLOOR HAS BEEN ACHIEVED. VSS. BED LOW, CALL LIGHT AND VS. SET IN PLACE. RN PRESENT TO ACCEPT CARE. PATIENT RESTING COMFORTABLY IN BED. BELONGINGS SENT WITH PATIENT. DRESSINGS SEAN. RN PRESENT TO ACCEPT CARE. RIGHT UE DRESSINGS ARE CDI Addendum: 05/27/19 at 1421 by Brian Tellez RN, RN Amended: Links added.
--- NOTE | 2019-05-27 14:21 | NUR ---
Pt arrived stable from recovery room after right arm fistula placement. Pt has a cdi to right wrist where placement did not work. Fistula placed on right upper arm, cdi. VS remain stable. Will continue to monitor. VS: 98.8, 68, 16 96% 3L, 146/60
--- NOTE | 2019-05-27 14:22 | NUR ---
ERROR IN PRIOR BLOOD GLUCOSE FROM RECOVERY. CORRECT IS 119 BG IN RECOVERY Addendum: 05/27/19 at 1422 by Brian Tellez RN, RN Amended: Links added.
[2019-05-27] MEDS: furosemide 40mg tablet PO SCH (15:32)
[2019-05-27] MEDS: pregabalin 25mg capsule PO SCH (15:32)
[2019-05-27] MEDS: folic acid/vitamin B complex w/vitamin C 0.8mg tablet PO SCH (15:32)
[2019-05-27] MEDS: sertraline 50mg tablet PO SCH (15:32)
[2019-05-27] MEDS: folic acid 1mg tablet PO SCH (15:32)
[2019-05-27] MEDS: lisinopril 5mg tablet PO SCH (15:33)
[2019-05-27] MEDS: morphine 2 MG/ML inj. syringe IV PRN (17:44)
--- NOTE | 2019-05-27 18:15 | NUR ---
Patient in room PCU 3025. I have received report from Lynette MAURO and had the opportunity to ask questions and assume patient care. Patient finishing up dinner, will continue to monitor.
--- NOTE | 2019-05-27 18:34 | NUR ---
Problems reprioritized. Patient report given, questions answered & plan of care reviewed with NJ Black.
[2019-05-27] MEDS: sennosides/docusate sodium tablet PO SCH (21:00)
[2019-05-27] MEDS: insulin glargine (Lantus) pen - multi-dose SQ SCH (21:09)
[2019-05-27] MEDS: HYDROcodone/acetaminophen 10/325mg tab PO PRN (22:30)
[2019-05-28 02:00] VITALS: BP 132/59
[2019-05-28 06:00] VITALS: BP 137/61
--- NOTE | 2019-05-28 06:17 | NUR ---
Problems reprioritized. Patient report given, questions answered & plan of care reviewed with Lynette MAURO.
[2019-05-28] MEDS: sertraline 50mg tablet PO SCH (07:44)
[2019-05-28] MEDS: pregabalin 25mg capsule PO SCH (07:44)
[2019-05-28] MEDS: HYDROcodone/acetaminophen 10/325mg tab PO PRN (07:45)
[2019-05-28] MEDS: folic acid/vitamin B complex w/vitamin C 0.8mg tablet PO SCH (07:45)
[2019-05-28] MEDS: lisinopril 5mg tablet PO SCH (07:45)
[2019-05-28] MEDS: folic acid 1mg tablet PO SCH (07:45)
[2019-05-28] MEDS: furosemide 40mg tablet PO SCH (07:45)
[2019-05-28] MEDS: docusate sod 100mg capsule PO SCH (07:46)
[2019-05-28] MEDS: sodium ferric gluc complex inj 125 MG in normal saline 100ml IV soln 100 ML IV SCH (09:11)
[2019-05-28] MEDS: insulin Lispro (HumaLOG) vial - multi-dose SQ SCH (09:21)
[2019-05-28 11:00] VITALS: BP 131/78
[2019-05-28] MEDS ORDERED: folic acid tablet PO (11:48)
[2019-05-28] MEDS ORDERED: FOLI0.8T22 PO (11:48)
[2019-05-28] MEDS ORDERED: LISI-642 PO (11:48)
--- NOTE | 2019-05-28 13:23 | NUR ---
Pt stable for discharge per MD orders. Reviewed discharge paperwork with pt and pt signed. Pt had the opportunity to ask questions regarding plan of care. All belongings sent with pt. Tele monitor removed. PIV removed, cannula intact. Pt wheeled to lobby with facility staff to personal vehicle. Pt picked up by mother.
== END 2019-05-28 13:47 | disposition home or self-care (01) | DRG 405 ==
LOC: ER 13:49 → ED HOLD 14:56 → CICU 2S 16:43 → UNDODISIN 05-22 16:24 → PCU 3S 05-22 18:33
PROVIDERS: ADMIT Internal Medicine Critical Care Medicine; ATTEND Internal Medicine Critical Care Medicine
PROC: 05HM33Z Insertion of Infusion Device into Right Internal Jugular Vein, Percutaneous Approach (ICD-10-PCS; 2019-05-20)
PROC: B543ZZA Ultrasonography of Right Jugular Veins, Guidance (ICD-10-PCS; 2019-05-20)
PROC: 5A1D70Z Performance of Urinary Filtration, Intermittent, Less than 6 Hours Per Day (ICD-10-PCS; 2019-05-20)
PROC: 0JH63XZ Insertion of Tunneled Vascular Access Device into Chest Subcutaneous Tissue and Fascia, Percutaneous Approach (ICD-10-PCS; 2019-05-21)
PROC: 02HV33Z Insertion of Infusion Device into Superior Vena Cava, Percutaneous Approach (ICD-10-PCS; 2019-05-21)
PROC: 3E02340 Introduction of Influenza Vaccine into Muscle, Percutaneous Approach (ICD-10-PCS; 2019-05-21)
PROC: 5A1D70Z Performance of Urinary Filtration, Intermittent, Less than 6 Hours Per Day (ICD-10-PCS; 2019-05-21)
PROC: 5A1D70Z Performance of Urinary Filtration, Intermittent, Less than 6 Hours Per Day (ICD-10-PCS; 2019-05-24)
PROC: 5A1D70Z Performance of Urinary Filtration, Intermittent, Less than 6 Hours Per Day (ICD-10-PCS; 2019-05-26)
PROC: 03170ZD Bypass Right Brachial Artery to Upper Arm Vein, Open Approach (ICD-10-PCS; principal; 2019-05-27 12:16)
DX: E87.5 Hyperkalemia (principal); G93.41 Metabolic encephalopathy; N17.9 Acute kidney failure, unspecified; E11.22 Type 2 diabetes mellitus with diabetic chronic kidney disease; E87.2 Acidosis; I12.0 Hypertensive chronic kidney disease with stage 5 chronic kidney disease or end stage renal disease; D64.9 Anemia, unspecified; E87.70 Fluid overload, unspecified; N18.6 End stage renal disease; Z79.4 Long term (current) use of insulin; Z85.42 Personal history of malignant neoplasm of other parts of uterus; Z90.710 Acquired absence of both cervix and uterus; Z88.2 Allergy status to sulfonamides; Z23 Encounter for immunization
CPT/HCPCS: 36415; 36556; 36558; 36600; 71045; 76775; 76937; 77001; 80048; 80053; 80069; 81001; 82803; 82948; 83036; 83540; 83550; 83605; 83735; 84100; 84132; 85018; 85025; 86480; 86706; 86803; 86885; 86900; 86901; 87081; 87088; 87340; 90732; 93005; 93930; 93970; 94760; 97110; 97116; 97161; 97530; 99291; A4215; A4618; A7000; A9270; C1750; C1751; C1769; C1894; G0257; G0378; J0171; J0282; J0610; J0690; J0780; J1644; J1815; J2001; J2150; J2175; J2250; J2270; J2405; J2704; J2916; J2997; J3010; J3490; J7040; J7120; Q4081

== ENCOUNTER 2019-07-09 08:38 | Day surgery (SDC) | payer MEDICAID ==
[~2019-07-09] VITALS: Ht 167.6 cm; Wt 104.2 kg
[~2019-07-09 08:38] MED LIST: FOLI0.8T22 PO; FURO40TA4 PO; INSU100I31 SQ; INSU100I45 SQ; LISI-642 PO; PREG50CA64 PO; SERT50TA10 PO; folic acid tablet PO
[2019-07-09 09:00] VITALS: BP 125/51
[2019-07-09] MEDS ORDERED: ceFAZolin inj. 2,000 MG in normal saline soln 50 ML IV ONE (09:05)
[2019-07-09] MEDS ORDERED: normal saline 1000ml 1,000 ML IV PRN (09:05)
[2019-07-09] MEDS ORDERED: heparin 1,000unit/ml 10ml vial 10 ML ONE (10:47)
[2019-07-09] MEDS ORDERED: LIDOcaine 1%/PF 5ML 10 MG/ML VIAL ONE (10:47)
[2019-07-09] MEDS ORDERED: midazolam 2 mg/2 ml injection ONE (11:09)
[2019-07-09] MEDS ORDERED: fentaNYL/PF 50MCG/1 ML 2ML syringe ONE (11:09)
[2019-07-09 11:25] VITALS: BP 138/76
[2019-07-09 11:40] VITALS: BP 140/36
[2019-07-09 11:55] VITALS: BP 93/60
[2019-07-09 12:10] VITALS: BP 107/59
[2019-07-09 12:25] VITALS: BP 106/54
== END 2019-07-09 12:30 | disposition home or self-care (01) ==
LOC: SSTAY O 08:38
PROVIDERS: ATTEND Radiology Vascular & Interventional Radiology
DX: E11.22 Type 2 diabetes mellitus with diabetic chronic kidney disease (principal); I12.9 Hypertensive chronic kidney disease with stage 1 through stage 4 chronic kidney disease, or unspecified chronic kidney disease; N18.9 Chronic kidney disease, unspecified; E11.21 Type 2 diabetes mellitus with diabetic nephropathy; Z88.2 Allergy status to sulfonamides; Z79.4 Long term (current) use of insulin; Z79.899 Other long term (current) drug therapy; Z99.2 Dependence on renal dialysis
CPT/HCPCS: 36581; 99152; 99153; C1750; C1769; J1644; J2250; J3010; A9270

== ENCOUNTER 2019-07-23 08:58 | Day surgery (SDC) | payer MEDICAID ==
[~2019-07-23] VITALS: Ht 167.6 cm; Wt 105.6 kg
[2019-07-23] MEDS ORDERED: normal saline 1000ml 1,000 ML IV SCH (09:15)
[2019-07-23] MEDS ORDERED: PHO667C PO (09:54)
[2019-07-23] MEDS ORDERED: ASPI81TA52 PO (09:54)
[2019-07-23] MEDS ORDERED: DULO60CA45 PO (09:54)
[2019-07-23 10:22] LABS: BASOPHILS # (AUTO) 0.1 X10'3 (0-0.2); BASOPHILS % (AUTO) 1.1 % (0-1); EOSINOPHILS # (AUTO) 0.3 X10'3 (0-0.9); EOSINOPHILS % (AUTO) 3.7 % (0-6); HEMATOCRIT 39.3 % (35.0-45.0); HEMOGLOBIN 12.6 g/dl (12.0-16.0); LYMPHOCYTES # (AUTO) 1.7 X10'3 (1.1-4.8); LYMPHOCYTES % (AUTO) 24.7 % (21-51); MEAN CORPUSCULAR HEMOGLOBIN 27.7 PG (27.0-31.0); MEAN CORPUSCULAR HGB CONC 32.1 g/dL (33.0-36.5); MEAN CORPUSCULAR VOLUME 86.4 FL (78-98); MEAN PLATELET VOLUME 9.4 FL (7.4-10.4); MONOCYTES # (AUTO) 0.7 X10'3 (0-0.9); MONOCYTES % (AUTO) 10.5 % (2-12); NEUTROPHILS # (AUTO) 4.2 X10'3 (1.8-7.7); PLATELET COUNT 227 X10'3 (140-440); RED BLOOD COUNT 4.55 X10'6 (4.20-5.60); RED CELL DISTRIBUTION WIDTH 19.5 % (11.5-14.5)
[2019-07-23] MEDS ORDERED: heparin 1,000 UNITS/NS 500ml 500 ML ONE (10:22)
[2019-07-23] MEDS ORDERED: LIDOcaine 1%/PF 5ML 10 MG/ML VIAL ONE (10:22)
[2019-07-23] MEDS ORDERED: fentaNYL/PF 50MCG/1 ML 2ML syringe ONE ×2 (10:22→11:02)
[2019-07-23] MEDS ORDERED: iohexol 300mg/ml 100ml inj. ONE (10:22)
[2019-07-23 10:36] LABS: ALBUMIN 3.3 G/DL (3.4-5.0); ANION GAP 9 (8-16); BLOOD UREA NITROGEN 43 MG/DL (7-18); BUN/CREATININE RATIO 8.9 (6.6-38.0); CALCIUM 9.3 MG/DL (8.5-10.1); CHLORIDE 103 MMOL/L (99-107); CREATININE 4.84 MG/DL (0.40-0.90); GLUCOSE 117 MG/DL (70-104); SODIUM 137 MMOL/L (135-145); TOTAL CARBON DIOXIDE 25.3 MMOL/L (24-32); eGFR 10 ML/MIN
[2019-07-23 10:40] LABS: POTASSIUM 5.7 MMOL/L (3.5-5.1)
[2019-07-23] MEDS ORDERED: midazolam 2 mg/2 ml injection ONE ×2 (10:41→11:02)
[2019-07-23 11:30] LABS: ANISOCYTOSIS 2+; PLATELET ESTIMATE NORMAL; POLYCHROMASIA FEW
[2019-07-23 11:38] VITALS: BP 103/61
[2019-07-23 11:53] VITALS: BP 104/54
[2019-07-23 12:08] VITALS: BP 108/79
[2019-07-23 12:23] VITALS: BP 131/75
[2019-07-23 12:38] VITALS: BP 110/74
== END 2019-07-23 12:38 | disposition home or self-care (01) ==
LOC: SSTAY O 08:58
PROVIDERS: ATTEND Radiology Vascular & Interventional Radiology
DX: T82.858A Stenosis of other vascular prosthetic devices, implants and grafts, initial encounter (principal); E11.22 Type 2 diabetes mellitus with diabetic chronic kidney disease; N18.6 End stage renal disease; Z88.2 Allergy status to sulfonamides; Z87.891 Personal history of nicotine dependence; Z79.4 Long term (current) use of insulin; Z79.899 Other long term (current) drug therapy; Z86.73 Personal history of transient ischemic attack (TIA), and cerebral infarction without residual deficits; Z98.890 Other specified postprocedural states; Y83.2 Surgical operation with anastomosis, bypass or graft as the cause of abnormal reaction of the patient, or of later complication, without mention of misadventure at the time of the procedure; Y92.89 Other specified places as the place of occurrence of the external cause
CPT/HCPCS: 36415; 36902; 80048; 85025; 99152; 99153; J1644; J2250; J3010; Q9967

== ENCOUNTER 2019-08-06 18:00 | Observation (INO) | payer MEDICAID ==
[~2019-08-06] VITALS: Ht 165.1 cm; Wt 105.5 kg
[~2019-08-06 18:00] MED LIST changes: +ASPI81TA52 PO; +DULO60CA45 PO; +PHO667C PO; -SERT50TA10 PO
[2019-08-06 18:45] LABS: BASOPHILS % (AUTO) 0.5 % (0-1); EOSINOPHILS # (AUTO) 0.2 X10'3 (0-0.9); EOSINOPHILS % (AUTO) 3.4 % (0-6); HEMATOCRIT 41.6 % (35.0-45.0); HEMOGLOBIN 13.7 g/dl (12.0-16.0); LYMPHOCYTES # (AUTO) 1.6 X10'3 (1.1-4.8); LYMPHOCYTES % (AUTO) 24.1 % (21-51); MEAN CORPUSCULAR HEMOGLOBIN 28.5 PG (27.0-31.0); MEAN CORPUSCULAR VOLUME 86.5 FL (78-98); MEAN PLATELET VOLUME 8.8 FL (7.4-10.4); MONOCYTES # (AUTO) 0.5 X10'3 (0-0.9); NEUTROPHILS # (AUTO) 4.3 X10'3 (1.8-7.7); PLATELET COUNT 222 X10'3 (140-440); RED BLOOD COUNT 4.81 X10'6 (4.20-5.60); RED CELL DISTRIBUTION WIDTH 18.7 % (11.5-14.5); WHITE BLOOD COUNT 6.7 X10'3 (4.5-11.0)
[2019-08-06 19:08] LABS: ALANINE AMINOTRANSFERASE 27 U/L (12-78); ALBUMIN 3.4 G/DL (3.4-5.0); ALBUMIN/GLOBULIN RATIO 0.6 (1.1-1.5); ALKALINE PHOSPHATASE 131 IU/L (46-116); ANION GAP 8 (8-16); ASPARTATE AMINO TRANSFERASE 17 U/L (10-37); BILIRUBIN,TOTAL 0.2 MG/DL (0.1-1.0); BLOOD UREA NITROGEN 46 MG/DL (7-18); BUN/CREATININE RATIO 11.7 (6.6-38.0); CALCIUM 9.9 MG/DL (8.5-10.1); CHLORIDE 102 MMOL/L (99-107); CREATININE 3.94 MG/DL (0.40-0.90); GLUCOSE 210 MG/DL (70-104); SODIUM 140 MMOL/L (135-145); TOTAL CARBON DIOXIDE 30.3 MMOL/L (24-32); TOTAL PROTEIN 8.8 G/DL (6.4-8.2); eGFR 12 ML/MIN
[2019-08-06] MEDS ORDERED: ASPI-1475 PO (19:53)
[2019-08-06] MEDS ORDERED: DULO60CA65 PO (19:53)
[2019-08-06] MEDS ORDERED: CALC667C5 PO (19:53)
[2019-08-06] MEDS ORDERED: LISI-604 PO (19:53)
[2019-08-06] MEDS ORDERED: insulin Lispro (HumaLOG) vial - multi-dose SQ SCH ×2 (20:00→21:45)
[2019-08-06] MEDS ORDERED: insulin regular, human U-100 3ml vial - multi-dose SQ ONE (20:00)
--- NOTE | 2019-08-06 20:02 | NUR ---
Pt. requesting dinner. Blood sugar taken an results 250. PA made aware. Per pt. she takes basal dose of 8u every meal plus sliding scale dose. Order received to give 10u insulin lispro with meal.
--- NOTE | 2019-08-06 20:34 | NUR ---
Pt. consumed a 1 full turkey sandwich, carton of fat free milk (240cc), yogurt and cheese stick.
[2019-08-06] MEDS ORDERED: tPA-cathflo 2 MG/2 ml IV flush IVF ONE (21:10)
[2019-08-06] MEDS ORDERED: glucagon, human recombinant 1mg kit SUBCUT PRN (21:45)
[2019-08-06] MEDS ORDERED: nitroGLYCERIN 0.4mg SUBLingual tab SL PRN (21:45)
[2019-08-06] MEDS ORDERED: dextrose ORAL solution 15 GM/59 ML bottle PO PRN ×2 (21:45)
[2019-08-06] MEDS ORDERED: MESSAGE TO PHARMACY PO ONE (21:45)
[2019-08-06] MEDS ORDERED: ondansetron/PF 4mg/2ml inj IV PRN (21:45)
[2019-08-06] MEDS ORDERED: dextrose 50%-water 50ml dispensing syringe IV PRN ×2 (21:45)
[2019-08-06] MEDS ORDERED: acetaminophen 325mg tablet PO PRN (21:45)
[2019-08-06] MEDS ORDERED: bisacodyl 10mg suppository rectal RC PRN (21:45)
[2019-08-06] MEDS ORDERED: pantoprazole 40mg Tablet.DR PO ONE (21:55)
--- NOTE | 2019-08-06 22:05 | NUR ---
House sup contacted for possible admission
--- NOTE | 2019-08-06 22:30 | NUR ---
Patient in room MED 315. I have received report from ANNIE MAURO and had the opportunity to ask questions and assume patient care.
[2019-08-06] MEDS: sucralfate 1gm/10ml UD suspension PO SCH (22:51)
[2019-08-06 22:57] VITALS: BP 131/63
--- NOTE | 2019-08-07 00:30 | NUR ---
BG 311, PATIENT WAS NOT GIVEN LANTUS IN ED FOR NIGHTTIME COVERAGE. CONSULTED WITH SERVICE STATION OPERATOR, STATED IT LANTUS TOO LATE TO ADMINISTER, REEVALUATE INSULIN PROTOCOL IN AM TO DETERMINE LEVEL.
[2019-08-07 00:44] LABS: BASOPHILS % (AUTO) 0.6 % (0-1); EOSINOPHILS # (AUTO) 0.2 X10'3 (0-0.9); EOSINOPHILS % (AUTO) 3.3 % (0-6); HEMATOCRIT 37.1 % (35.0-45.0); HEMOGLOBIN 12.2 g/dl (12.0-16.0); LYMPHOCYTES # (AUTO) 1.8 X10'3 (1.1-4.8); LYMPHOCYTES % (AUTO) 28.1 % (21-51); MEAN CORPUSCULAR HEMOGLOBIN 28.4 PG (27.0-31.0); MEAN CORPUSCULAR HGB CONC 32.9 g/dL (33.0-36.5); MEAN CORPUSCULAR VOLUME 86.4 FL (78-98); MEAN PLATELET VOLUME 8.7 FL (7.4-10.4); MONOCYTES # (AUTO) 0.7 X10'3 (0-0.9); NEUTROPHILS # (AUTO) 3.6 X10'3 (1.8-7.7); PLATELET COUNT 174 X10'3 (140-440); RED BLOOD COUNT 4.29 X10'6 (4.20-5.60); RED CELL DISTRIBUTION WIDTH 18.1 % (11.5-14.5); WHITE BLOOD COUNT 6.3 X10'3 (4.5-11.0)
[2019-08-07 00:53] LABS: ANION GAP 7 (8-16); BLOOD UREA NITROGEN 51 MG/DL (7-18); BUN/CREATININE RATIO 11.9 (6.6-38.0); CALCIUM 9.2 MG/DL (8.5-10.1); CHLORIDE 103 MMOL/L (99-107); CREATININE 4.28 MG/DL (0.40-0.90); GLUCOSE 311 MG/DL (70-104); PHOSPHORUS 5.4 MG/DL (2.3-4.5); POTASSIUM 5.1 MMOL/L (3.5-5.1); SODIUM 138 MMOL/L (135-145); TOTAL CARBON DIOXIDE 27.7 MMOL/L (24-32); eGFR 11 ML/MIN
[2019-08-07 06:00] VITALS: BP 157/71
--- NOTE | 2019-08-07 06:22 | NUR ---
Patient in room MED 315. I have received report from NJ Martin and had the opportunity to ask questions and assume patient care.
[2019-08-07 06:23] LABS: PARTIAL THROMBOPLASTIN TIME 29 SECONDS (22-32)
--- NOTE | 2019-08-07 06:25 | NUR ---
Problems reprioritized. Patient report given, questions answered & plan of care reviewed with ANGELITO MAURO.
[2019-08-07] MEDS ORDERED: pantoprazole 40mg Tablet.DR PO SCH (07:30)
[2019-08-07] MEDS: sucralfate 1gm/10ml UD suspension PO SCH ×2 (07:34→12:06)
[2019-08-07] MEDS ORDERED: folic acid/vitamin B complex w/vitamin C 0.8mg tablet PO SCH (08:00)
[2019-08-07] MEDS ORDERED: pregabalin 25mg capsule PO SCH (08:00)
[2019-08-07] MEDS ORDERED: calcium acetate 667mg (PhosLO) capsule PO SCH (08:00)
[2019-08-07] MEDS ORDERED: lisinopril 5mg tablet PO SCH (08:00)
[2019-08-07] MEDS ORDERED: heparin, porcine 5000 units/ml vial SQ SCH (08:00)
[2019-08-07] MEDS ORDERED: furosemide 40mg tablet PO SCH (08:00)
[2019-08-07] MEDS ORDERED: docusate sod 100mg capsule PO SCH (08:00)
[2019-08-07] MEDS ORDERED: aspirin 81mg tablet.DR PO SCH (08:00)
[2019-08-07] MEDS ORDERED: duloxetine 30mg CAPSULE.DR PO SCH (08:00)
[2019-08-07 11:00] VITALS: BP_SYST 117; BP_SYST 118; BP_DIAS 54; BP_DIAS 70
[2019-08-07] MEDS ORDERED: NITR0.4T51 SL (11:20)
--- NOTE | 2019-08-07 13:19 | NUR ---
Patient discharge. PIV taken out. Given instructions on nitro and when to call 911, follow-up ,chest pain, ESRD and DM survival skills. Papers signed. Wrist band cutoff. Meds called into [facility] on [address]. Patient gathered all belongings and walked down to lobby to await sister who was her ride. Stable per TWAN Yang for IN.
[2019-08-07] MEDS ORDERED: insulin glargine (Lantus) pen - multi-dose SQ SCH (21:00)
== END 2019-08-07 12:55 | disposition home or self-care (01) ==
LOC: ER 18:01 → ED HOLD 21:45 → MED 3N 22:57
DX: R07.89 Other chest pain (principal); I12.0 Hypertensive chronic kidney disease with stage 5 chronic kidney disease or end stage renal disease; E11.22 Type 2 diabetes mellitus with diabetic chronic kidney disease; N18.6 End stage renal disease; E11.42 Type 2 diabetes mellitus with diabetic polyneuropathy; I20.9 Angina pectoris, unspecified; Z86.73 Personal history of transient ischemic attack (TIA), and cerebral infarction without residual deficits; Z87.891 Personal history of nicotine dependence; Z85.42 Personal history of malignant neoplasm of other parts of uterus; Z90.710 Acquired absence of both cervix and uterus; Z99.2 Dependence on renal dialysis; Z79.4 Long term (current) use of insulin; Z79.82 Long term (current) use of aspirin; Z79.899 Other long term (current) drug therapy; Z88.2 Allergy status to sulfonamides
CPT/HCPCS: 36415; 71045; 80048; 80053; 82948; 83036; 83735; 84100; 84484; 85025; 85610; 85730; 87081; 93005; 96372; 96374; 96375; 99285; G0378; J1644; J1815; J2405; J2997

== ENCOUNTER 2019-09-27 08:46 | Day surgery (SDC) | payer MEDICARE, MEDICAID ==
[2019-09-27] VITALS (7 sets, daily range): BP systolic 97–142; BP diastolic 45–83
[~2019-09-27] VITALS: Ht 167.6 cm; Wt 113.0 kg
[~2019-09-27 08:46] MED LIST changes: +ASPI-1475 PO; -ASPI81TA52 PO; +CALC667C5 PO; -DULO60CA45 PO; +DULO60CA65 PO; +LISI-604 PO; -LISI-642 PO; +NITR0.4T51 SL; -PHO667C PO; -folic acid tablet PO
[2019-09-27] MEDS ORDERED: normal saline 1000ml IV bolus over 1 hour IV ONE (09:05)
[2019-09-27] MEDS ORDERED: tPA-cathflo 2 MG/2 ml IV flush ONE (09:28)
[2019-09-27 09:56] LABS: BASOPHILS % (AUTO) 0.5 % (0-1); EOSINOPHILS # (AUTO) 0.1 X10'3 (0-0.9); EOSINOPHILS % (AUTO) 2.1 % (0-6); HEMATOCRIT 35.9 % (35.0-45.0); HEMOGLOBIN 12.3 g/dl (12.0-16.0); LYMPHOCYTES # (AUTO) 1.7 X10'3 (1.1-4.8); LYMPHOCYTES % (AUTO) 24.5 % (21-51); MEAN CORPUSCULAR HEMOGLOBIN 30.3 PG (27.0-31.0); MEAN CORPUSCULAR HGB CONC 34.2 g/dL (33.0-36.5); MEAN CORPUSCULAR VOLUME 88.7 FL (78-98); MONOCYTES # (AUTO) 0.8 X10'3 (0-0.9); MONOCYTES % (AUTO) 10.7 % (2-12); NEUTROPHILS # (AUTO) 4.4 X10'3 (1.8-7.7); NEUTROPHILS % (AUTO) 62.2 % (42-75); PLATELET COUNT 196 X10'3 (140-440); RED BLOOD COUNT 4.05 X10'6 (4.20-5.60); RED CELL DISTRIBUTION WIDTH 18.8 % (11.5-14.5)
[2019-09-27 10:01] LABS: ALBUMIN 3.1 G/DL (3.4-5.0); ANION GAP 12 (8-16); BLOOD UREA NITROGEN 85 MG/DL (7-18); BUN/CREATININE RATIO 9.5 (6.6-38.0); CALCIUM 8.7 MG/DL (8.5-10.1); CHLORIDE 99 MMOL/L (99-107); CREATININE 8.92 MG/DL (0.40-0.90); GLUCOSE 231 MG/DL (70-104); SODIUM 136 MMOL/L (135-145); TOTAL CARBON DIOXIDE 24.6 MMOL/L (24-32); eGFR 5 ML/MIN
[2019-09-27] MEDS ORDERED: DULO-31 PO (10:34)
[2019-09-27] MEDS ORDERED: FOLI0.4T2 PO (10:34)
[2019-09-27] MEDS ORDERED: NITR0.4T48 SL (10:36)
[2019-09-27 10:59] LABS: ANISOCYTOSIS 2+; PLATELET ESTIMATE NORMAL
[2019-09-27] MEDS ORDERED: heparin 1,000 UNITS/NS 500ml 500 ML ONE ×3 (11:23→13:44)
[2019-09-27] MEDS ORDERED: fentaNYL/PF 50MCG/1 ML 2ML syringe ONE ×4 (11:23→14:43)
[2019-09-27] MEDS ORDERED: midazolam 2 mg/2 ml injection ONE ×3 (11:23→14:43)
[2019-09-27] MEDS ORDERED: LIDOcaine 1%/PF 5ML 10 MG/ML VIAL ONE (11:23)
[2019-09-27] MEDS ORDERED: iohexol 300mg/ml 100ml inj. ONE ×2 (11:25→11:26)
[2019-09-27] MEDS ORDERED: heparin 1,000unit/ml 10ml vial 10 ML ONE (12:07)
[2019-09-27] MEDS ORDERED: iohexol 300 MG/1 ML 50ml polymer ONE ×2 (12:57→13:44)
[2019-09-27] MEDS ORDERED: diphenhydrAMINE 50 mg/ml inj ONE (13:29)
[2019-09-27] MEDS ORDERED: normal saline 1000ml 1,000 ML IV SCH (15:59)
== END 2019-09-27 17:20 | disposition home or self-care (01) ==
LOC: SSTAY O 08:46
PROVIDERS: ATTEND Radiology Vascular & Interventional Radiology
DX: T82.858A Stenosis of other vascular prosthetic devices, implants and grafts, initial encounter (principal); E11.22 Type 2 diabetes mellitus with diabetic chronic kidney disease; I12.0 Hypertensive chronic kidney disease with stage 5 chronic kidney disease or end stage renal disease; N18.6 End stage renal disease; E11.40 Type 2 diabetes mellitus with diabetic neuropathy, unspecified; Z85.42 Personal history of malignant neoplasm of other parts of uterus; Z80.8 Family history of malignant neoplasm of other organs or systems; Z90.710 Acquired absence of both cervix and uterus; Z98.890 Other specified postprocedural states; Z90.49 Acquired absence of other specified parts of digestive tract; Z86.73 Personal history of transient ischemic attack (TIA), and cerebral infarction without residual deficits; Z88.2 Allergy status to sulfonamides; Z82.49 Family history of ischemic heart disease and other diseases of the circulatory system; Y83.2 Surgical operation with anastomosis, bypass or graft as the cause of abnormal reaction of the patient, or of later complication, without mention of misadventure at the time of the procedure; Y92.89 Other specified places as the place of occurrence of the external cause
CPT/HCPCS: 36415; 36903; 80048; 85025; 99152; 99153; C1725; C1769; C1874; C1894; J1200; J1644; J2250; J2997; J3010; Q9967; 36902

== ENCOUNTER 2024-10-15 10:28 | Emergency (ER) | payer MEDICARE, MEDICAID ==
[~2024-10-15] VITALS: Ht 165.1 cm; Wt 101.2 kg
[~2024-10-15 10:28] MED LIST changes: +ATOR-2 PO; -CALC667C5 PO; +CINA60TA PO; +DOXE4VIA SUBCUT; -DULO60CA65 PO; +ERGO500093 PO; -FOLI0.8T22 PO; -INSU100I31 SQ; -INSU100I45 SQ; +INSU200I4 SQ; +LANT10005 PO; -LISI-604 PO; -NITR0.4T51 SL; +NOVLG SQ; +OMEP40CA21 PO; +ONDA-243 SL; -PREG50CA64 PO; +SEMA2PEN SUBCUT; +TRIA15OI9 TOP; +[UNRECOGNIZED DRUG - CODE] IV
[2024-10-15 10:36] VITALS: BP 108/65; PULSE 78; RESP 18; TEMP 97.1; O2SAT 95
--- NOTE | 2024-10-15 10:48 | Physician Documentation ---
History of Present Illness ~ Chief Complaint: See Chief Complaint Stated Complaint: PORT BLEEDING Time Seen by MD: 13:58 Primary Medical Doctor: Unknown HPI 54-year-old female presenting for bleeding fistula Tetanus within 5 years: No Medication Reconciliation Allergies: Coded Allergies: sumatriptan (Verified Allergy, Mild, Projectile Vomiting, 08/06/19) Sulfa (Sulfonamide Antibiotics) (Verified Allergy, Unknown, 08/06/19) Scheduled Aspirin (Aspirin EC), 1 TAB PO DAILY, (Reported) Atorvastatin Calcium (Atorvastatin Calcium), 0.5 TAB PO DAILY, (Reported) Cinacalcet HCl (Sensipar), 1 TAB PO MWF, (Reported) Doxercalciferol (Hectorol), 4 MCG SUBCUT MWF, (Reported) Ergocalciferol (Vitamin D2) (Vitamin D2), 1 CAP PO Q7D, (Reported) Furosemide (Furosemide), 2 TAB PO DAILY, (Reported) Insulin Aspart (Novolog), 20 UNITS SQ TID, (Reported) Insulin Degludec (Tresiba Flextouch U-200), 80 UNITS SQ DAILY, (Reported) Lanthanum Carbonate (Lanthanum Carbonate), 1 TAB PO TID, (Reported) Methoxy Peg-Epoetin Beta (Mircera), 75 MCG IV Q2W, (Reported) Omeprazole (Prilosec), 1 CAP PO DAILY, (Reported) Semaglutide (Ozempic), 2 MG SUBCUT Q7D, (Reported) Triamcinolone Acetonide (Triamcinolone Acetonide), 1 APPLIC TOP BID, (Reported) Scheduled PRN ONDANSETRON ODT 4mg tablet (Ondansetron Odt), 1 TAB SL Q8H PRN for nausea/vomiting, (Reported) Past Medical History Past Medical History: CVA/TIA/Stroke, Peripheral Neuropathy, Hypertension, Chronic Kidney Disease, Diabetes Past Surgical History: noncontributory Alcohol Use: None Drug Use: none, other Lives with: Spouse Lives In: Home Review of Systems All Other Systems at this time: Reviewed and Negative Physical Exam Vital Signs: Temperature: 97.1, Source: Temporal, Heart Rate: 78, Respiratory Rate: 18, Pulse Oximetry: 95, Weight: 101.200 Oxygen Flow Rate: 0 Physical Exam Fistula site right arm with dry blood no active bleeding Progress Progress Note Labs independently interpreted by myself show no acute abnormality Results/Orders Reviewed/noted all lab results: Yes Results/Orders Completed Orders - YAKELIN CURTIS MD Cbc/Diff (10/15/24 10:41) CMP (10/15/24 10:41) Vital Signs 10/15/24 10:36 Temp 97.1 Pulse 78 Resp 18 B/P (MAP) 108/65 Pulse Ox 95 O2 Flow Rate 0 Laboratory Tests Test 10/15/24 10:54 White Blood Count 4.2 L Red Blood Count 4.31 Hemoglobin 12.8 Hematocrit 38.8 Mean Corpuscular Volume 90.0 Mean Corpuscular Hemoglobin 29.7 Mean Corpuscular Hemoglobin Concent 33.0 Red Cell Distribution Width 17.8 H Platelet Count 159 Mean Platelet Volume 9.3 Neutrophils (%) (Auto) 61.9 Lymphocytes (%) (Auto) 24.0 Monocytes (%) (Auto) 9.7 Eosinophils (%) (Auto) 3.7 Basophils (%) (Auto) 0.7 Neutrophils # (Auto) 2.6 Lymphocytes # (Auto) 1.0 L Monocytes # (Auto) 0.4 Eosinophils # (Auto) 0.2 Basophils # (Auto) 0.0 CBC Comment Sodium Level 138 Potassium Level 4.0 Chloride Level 94 L Carbon Dioxide Level 35.3 H Anion Gap 9 Blood Urea Nitrogen 22 H Creatinine 4.17 H Estimated GFR/1.73 m2 11 BUN/Creatinine Ratio 5.3 L Glucose Level 242 H Calcium Level 8.7 Total Bilirubin 0.5 Aspartate Amino Transf (AST/SGOT) 28 Alanine Aminotransferase (ALT/SGPT) 29 Alkaline Phosphatase 214 H Total Protein 8.2 Albumin 3.8 Globulin 4.4 H Albumin/Globulin Ratio 0.9 L Chemistry Comments Medical Decision Making Additional info obtained from: old records Findings Reviewed discharge summary June 25, 2022 Additional Comment Acute blood loss anemia, hemorrhagic shock, thrombocytopenia Departure Disposition: HOME / SELF CARE / HOMELESS Impression: Primary Impression: Dialysis AV fistula malfunction Qualified Codes: T82.590A - Other mechanical complication of surgically created arteriovenous fistula, initial encounter Additional Instructions: Return to the emergency department if you have any reoccurrence of the bleeding Referrals: NO PRIMARY CARE PROVIDER (PCP) Additional Comment Medical Screen Exam 54 y/o female with bleeding from port from dialysis on right arm, bleed for about 1hour, stopped bleeding at 9:50. Denies any lightheadedness. States usually the bleeding stops within 30minutes but today it took an hour. Physical exam: Bandage over right arm where fistual is, dried blood. Patient in no distress, talking on cell phone. a/p: 1. Bleeding from fistula, stable. Signature Scribe Signature: x Attestation: MEDICAL SCREENING EXAM COMPLETE-work and decisions made by me.Marichuy TRENT 10/15/24 10:46 MARICHUY MOSES October 15, 2024 10:48 YAKELIN CURTIS MD October 15, 2024 14:00
[2024-10-15 11:17] LABS: ALANINE AMINOTRANSFERASE 29 U/L (12-78); ALBUMIN 3.8 G/DL (3.4-5.0); ALBUMIN/GLOBULIN RATIO 0.9 (1.1-1.5); ALKALINE PHOSPHATASE 214 IU/L (46-116); ANION GAP 9 (8-16); BILIRUBIN,TOTAL 0.5 MG/DL (0.1-1.0); BLOOD UREA NITROGEN 22 MG/DL (7-18); BUN/CREATININE RATIO 5.3 (10.0-20.0); CALCIUM 8.7 MG/DL (8.5-10.1); CHLORIDE 94 MMOL/L (99-107); CREATININE 4.17 MG/DL (0.40-0.90); GLUCOSE 242 MG/DL (70-104); SODIUM 138 MMOL/L (135-145); TOTAL CARBON DIOXIDE 35.3 MMOL/L (24-32); TOTAL PROTEIN 8.2 G/DL (6.4-8.2); eCRCL 14 ML/MIN; eGFR 11 ML/MIN
[2024-10-15 11:19] LABS: BASOPHILS % (AUTO) 0.7 % (0-1); EOSINOPHILS # (AUTO) 0.2 X10'3 (0-0.9); EOSINOPHILS % (AUTO) 3.7 % (0-6); HEMATOCRIT 38.8 % (35.0-45.0); HEMOGLOBIN 12.8 g/dl (12.0-16.0); MEAN CORPUSCULAR HEMOGLOBIN 29.7 PG (27.0-31.0); MEAN PLATELET VOLUME 9.3 FL (7.4-10.4); MONOCYTES # (AUTO) 0.4 X10'3 (0-0.9); MONOCYTES % (AUTO) 9.7 % (2-12); NEUTROPHILS # (AUTO) 2.6 X10'3 (1.8-7.7); NEUTROPHILS % (AUTO) 61.9 % (42-75); PLATELET COUNT 159 X10'3 (140-440); RED BLOOD COUNT 4.31 X10'6 (4.20-5.60); RED CELL DISTRIBUTION WIDTH 17.8 % (11.5-14.5); WHITE BLOOD COUNT 4.2 X10'3 (4.5-11.0)
[2024-10-15 11:29] LABS: ASPARTATE AMINO TRANSFERASE 28 U/L (10-37)
== END 2024-10-15 15:32 | disposition home or self-care (01) ==
LOC: ER 10:29
DX: T82.590A Other mechanical complication of surgically created arteriovenous fistula, initial encounter (principal); E11.22 Type 2 diabetes mellitus with diabetic chronic kidney disease; E11.42 Type 2 diabetes mellitus with diabetic polyneuropathy; I12.0 Hypertensive chronic kidney disease with stage 5 chronic kidney disease or end stage renal disease; N18.6 End stage renal disease; Z86.73 Personal history of transient ischemic attack (TIA), and cerebral infarction without residual deficits; Z88.2 Allergy status to sulfonamides; Z88.8 Allergy status to other drugs, medicaments and biological substances; Z99.2 Dependence on renal dialysis; Z79.82 Long term (current) use of aspirin; Y92.89 Other specified places as the place of occurrence of the external cause
CPT/HCPCS: 36415; 80053; 85025; 99283